=== PATIENT | female | born 1975 | race African-American/Black ===

== ENCOUNTER 2020-03-21 20:37 | Emergency (ER) | payer MEDICAID ==
[~2020-03-21] VITALS: Ht 172.7 cm; Wt 91.0 kg
[2020-03-21] MEDS ORDERED: MAGNESIUM/ALUMINUM HYDROXIDE/SIMETHICONE 30ML UDC PO ONE (21:45)
[2020-03-21] MEDS ORDERED: VISCOUS LIDOCAINE 2% 15 ML UDC PO ONE (21:45)
[2020-03-21] MEDS ORDERED: ASPIRIN 81MG TABLET PO ONE (21:45)
[2020-03-21 23:48] LABS: CHLORIDE 108 mEq/L (98-107)
[2020-03-21 23:51] LABS: BASOPHILS % 0.3 % (0.0-2.0); EOSINOPHILS % 0.3 % (0.0-5.0); HEMATOCRIT. 29.4 % (36.0-48.0); HEMOGLOBIN. 10.4 g/dL (12.0-16.0); LYMPHOCYTES % 19.2 % (20.0-50.0); MEAN CORPUSCULAR HEMOGLOBIN 41.9 pg (28.0-32.0); MEAN CORPUSCULAR VOLUME 118.2 fL (81.0-99.0); MEAN PLATELET VOLUME 8.9 fl (7.4-10.4); MONOCYTES % 5.5 % (2.0-8.0); NEUTROPHILS % 74.7 % (40.0-76.0); PLATELET 312 x1000/uL (130-400); RED BLOOD CELL COUNT 2.49 mill/uL (4.2-5.4); RED CELL DISTRIBUTION WIDTH 18.4 % (11.6-14.6)
[2020-03-21 23:59] LABS: PLATELET ESTIMATE NORMAL
[2020-03-22 04:10] VITALS: BP 100/59
== END 2020-03-22 04:12 | disposition home or self-care (01) ==
LOC: ER 20:37
DX: R07.89 Other chest pain (principal)
CPT/HCPCS: 36415; 71045; 80053; 83880; 84484; 85025; 93005; 99285; Z7610